=== PATIENT | female | born 1975 | race Caucasian/White ===

== ENCOUNTER → 2025-02-23 10:47 | Outpatient (REF) | payer OTHER, SELFPAY ==
[2025-02-23 11:43] LABS: Hematocrit 41.6 % (37.0-47.0); Hemoglobin 14.0 g/dL (12.0-16.0); Mean Corp Hgb Conc. 33.7 g/dL (33.0-37.0); Mean Corpuscular Volume 94.3 fL (81.0-99.0); Nucleated Red Blood Cells % 0 %; Platelet Count 184 10^3/uL (130-400); Red Cell Dist. Width 15.0 % (11.5-14.5)
[2025-02-23 12:18] LABS: ALT (SGPT) 71 U/L (0-35); AST (SGOT) 93 U/L (14-36); Albumin 3.7 g/dl (3.5-5.0); Alkaline Phosphatase 132 U/L (38-126); Blood Urea Nitrogen 4 mg/dl (7-17); Calcium 8.8 mg/dl (8.4-10.2); Carbon Dioxide 30 mmol/L (22-30); Chloride 96 mmol/L (98-107); GGTP 119 U/L (12-43); Glucose 91 mg/dl (70-99); Potassium 4.1 mmol/L (3.5-5.1); Sodium 131 mmol/L (135-145); Total Protein 9.5 g/dl (6.3-8.2); Very Low Density Lipoprotein 22 mg/dl (0-30); eGFR > 60.00
[2025-02-23 12:26] LABS: HDL Cholesterol 21 mg/dl; LDL Cholesterol, Calculated 219 mg/dl
== END ==
LOC: REG 10:47
PROVIDERS: ATTENDING PHYSICIAN Nurse Practitioner Adult Health
DX: Z76.89 Persons encountering health services in other specified circumstances (principal)
CPT/HCPCS: 36415; 80053; 80061; 82977; 84439; 84443; 85025

== ENCOUNTER → 2025-03-01 08:23 | Outpatient (REF) | payer OTHER, SELFPAY | LOC: RAD 08:23 | PROVIDERS: ATTENDING PHYSICIAN Nurse Practitioner Adult Health | DX: R14.0 Abdominal distension (gaseous) (principal) | CPT/HCPCS: 76700 ==

== ENCOUNTER → 2025-03-02 08:38 | Outpatient (REF) | payer OTHER, SELFPAY ==
[2025-03-02 09:00] VITALS: BP 189/105; BP_SYST 116
[2025-03-02 09:48] VITALS: BP 155/93; BP_SYST 100
[2025-03-02 10:33] LABS: Body Fluid Second Tech EF
== END ==
LOC: RADI 08:38
PROVIDERS: Specialist; ATTENDING PHYSICIAN Nurse Practitioner Adult Health
DX: K70.31 Alcoholic cirrhosis of liver with ascites (principal)
CPT/HCPCS: 49083; 82042; 83615; 84157; 87015; 87070; 87205; 88112; 88305; 89051

== ENCOUNTER 2025-03-02 10:14 | Outpatient (RCR) | payer OTHER, SELFPAY ==
[2025-03-02] MEDS: FLEXBUMIN 100 IV (10:31)
[2025-03-02 10:32] VITALS: BP 148/89
[2025-03-02 11:07] VITALS: BP 148/89
[2025-03-02] MEDS: FLEXBUMIN 50 IV (12:08)
[2025-03-02 12:09] VITALS: BP 140/76
[2025-03-02 13:14] VITALS: BP 134/78
== END 2025-03-11 23:59 | disposition home or self-care (01) ==
LOC: OID 10:14
PROVIDERS: ATTENDING PHYSICIAN Specialist
DX: K70.31 Alcoholic cirrhosis of liver with ascites (principal); R14.0 Abdominal distension (gaseous); R79.89 Other specified abnormal findings of blood chemistry; K21.9 Gastro-esophageal reflux disease without esophagitis
CPT/HCPCS: 96365; 96366; P9047

== ENCOUNTER → 2025-03-20 10:58 | Outpatient (REF) | payer OTHER, SELFPAY ==
[2025-03-20 11:53] LABS: INR 1.41; PT 17.4 Sec (11.4-14.6)
[2025-03-20 11:54] LABS: APTT 39.0 Sec (23.4-35.0)
[2025-03-20 15:25] LABS: Ferritin 839.0 ng/ml (11.1-264.0)
[2025-03-20 15:48] LABS: ALT (SGPT) 45 U/L (0-35); AST (SGOT) 60 U/L (14-36); Albumin 3.7 g/dl (3.5-5.0); Alkaline Phosphatase 116 U/L (38-126); Blood Urea Nitrogen 6 mg/dl (7-17); Calcium 8.9 mg/dl (8.4-10.2); Carbon Dioxide 26 mmol/L (22-30); Chloride 98 mmol/L (98-107); Glucose 103 mg/dl (70-99); Iron 160 ug/dl (37-170); Sodium 130 mmol/L (135-145); Total Protein 9.5 g/dl (6.3-8.2); eGFR > 60.00
[2025-03-20 15:53] LABS: Potassium 4.1 mmol/L (3.5-5.1)
[2025-03-20 15:57] LABS: Total Iron Binding Capacity 165 ug/dl (265-497)
[2025-03-20 16:20] LABS: Hepatitis B Surface Antigen Negative (Negative)
[2025-03-20 16:38] LABS: Hepatitis C Antibody Negative (Negative)
[2025-03-20 16:49] LABS: AFP Male/Tumor Marker 9.29 ng/ml
[2025-03-22 02:46] LABS: ANA, IgG Reflex to HEp-2 None Detected (None Detected)
== END ==
LOC: REG 10:58
PROVIDERS: ATTENDING PHYSICIAN Specialist; FAMILY PHYSICIAN Nurse Practitioner Adult Health
DX: K70.31 Alcoholic cirrhosis of liver with ascites (principal)
CPT/HCPCS: 36415; 80053; 82105; 82728; 83540; 83550; 85610; 85730; 86015; 86038; 86704; 86706; 86803; 87340

== ENCOUNTER → 2025-03-28 12:35 | Outpatient (REF) | payer OTHER, SELFPAY ==
[2025-03-28 13:07] LABS: Hematocrit 36.2 % (37.0-47.0); Hemoglobin 12.2 g/dL (12.0-16.0); Mean Corp Hgb Conc. 33.7 g/dL (33.0-37.0); Mean Corpuscular Volume 91.6 fL (81.0-99.0); Nucleated Red Blood Cells % 0 %; Platelet Count 159 10^3/uL (130-400); Red Cell Dist. Width 15.8 % (11.5-14.5)
[2025-03-28 13:17] LABS: INR 1.49; PT 17.7 Sec (11.4-14.6)
[2025-03-28 13:18] LABS: APTT 37.6 Sec (23.4-35.0)
[2025-03-28 13:49] LABS: ALT (SGPT) 52 U/L (0-35); AST (SGOT) 63 U/L (14-36); Albumin 3.6 g/dl (3.5-5.0); Alkaline Phosphatase 95 U/L (38-126); Blood Urea Nitrogen 6 mg/dl (7-17); Calcium 9.0 mg/dl (8.4-10.2); Carbon Dioxide 26 mmol/L (22-30); Chloride 98 mmol/L (98-107); Glucose 136 mg/dl (70-99); Potassium 4.2 mmol/L (3.5-5.1); Sodium 131 mmol/L (135-145); Total Protein 9.3 g/dl (6.3-8.2)
[2025-03-28 14:09] LABS: eGFR > 60.00
== END ==
LOC: REG 12:35
PROVIDERS: ATTENDING PHYSICIAN Specialist; FAMILY PHYSICIAN Nurse Practitioner Adult Health
DX: R79.89 Other specified abnormal findings of blood chemistry (principal); K70.31 Alcoholic cirrhosis of liver with ascites
CPT/HCPCS: 36415; 80053; 81256; 85025; 85610; 85730